=== PATIENT | female | born 1975 | race Two or more races ===

== ENCOUNTER 2018-03-14 15:43 | Emergency (ER) | payer MEDICAID, OTHER ==
[~2018-03-14] VITALS: Ht 162.6 cm; Wt 72.6 kg
[~2018-03-14 15:43] MED LIST: LEVO500T2 PO
[2018-03-14] MEDS ORDERED: PIPERACILLIN SODIUM/TAZOBACTAM 3.375 G in IV DEXTROSE 5% 50 ML IV ONE (16:45)
[2018-03-14] MEDS ORDERED: CLINDAMYCIN PHOSPHATE IV 600 MG in IV DEXTROSE 5% 100 ML IV ONE (16:45)
[2018-03-14] MEDS ORDERED: VANCOMYCIN IV 1,000 MG in IV DEXTROSE 5% 250 ML IV ONE (16:45)
[2018-03-14] MEDS ORDERED: FENTANYL CITRATE 100 MCG/2 ML AMPUL IV ONE (17:00)
[2018-03-14] MEDS ORDERED: diphenhydrAMINE 50 MG/1 ML VIAL IV ONE (17:00)
[2018-03-14] MEDS ORDERED: VANCOMYCIN IV 200 ML ONE (17:07)
[2018-03-14] MEDS ORDERED: CLINDAMYCIN PHOSPHATE 600 MG/4 ML VIAL ONE (17:07)
[2018-03-14] MEDS ORDERED: PIPERACILLIN/TAZOBACTAM/D5W 50 ML IV ONE (17:08)
[2018-03-14 17:10] LABS: BASOPHILS # (AUTO) 0.1 K/uL (0.0-8.0); BASOPHILS % (AUTO) 0.6 % (0.0-2.0); EOSINOPHILS # (AUTO) 0.2 K/uL (0.0-0.7); EOSINOPHILS % (AUTO) 1.2 % (0.0-7.0); HEMATOCRIT 42.1 % (31.2-41.9); LYMPHOCYTES % (AUTO) 12.9 % (20.5-51.5); MEAN CORPUSCULAR HEMOGLOBIN 31.1 uug (24.7-32.8); MEAN CORPUSCULAR HGB CONC 33 g/dL (32.3-35.6); MEAN CORPUSCULAR VOLUME 93.4 fL (75.5-95.3); MONOCYTES # (AUTO) 1.3 K/uL (2.0-10.0); MONOCYTES % (AUTO) 8.6 % (0.0-11.0); NEUTROPHILS # (AUTO) 11.9 K/uL (1.8-8.9); NEUTROPHILS % (AUTO) 76.7 % (38.5-71.5); PLATELET COUNT (AUTO) 220 K/uL (179-408); RED BLOOD CELL COUNT(AUTO) 4.51 MIL/uL (3.63-4.92); WHITE BLOOD COUNT (AUTO) 15.5 K/uL (3.8-11.8)
[2018-03-14] MEDS ORDERED: diphenhydrAMINE 50 MG/1 ML VIAL ONE (17:10)
[2018-03-14] MEDS ORDERED: FENTANYL CITRATE 100 MCG/2 ML AMPUL ONE (17:11)
[2018-03-14 17:19] LABS: POTASSIUM 4.3 mmol/L (3.5-5.1)
[2018-03-14 17:25] LABS: BILIRUBIN,DIRECT 0.1 mg/dL (0.0-0.2); BILIRUBIN,TOTAL 0.3 mg/dL (0.2-1.0); TOTAL PROTEIN, SERUM 6.8 g/dL (6.4-8.2)
--- NOTE | 2018-03-14 17:57 | NUR ---
pt talking to md regarding the admission. pt refuses to be admitted at this time. requesting px and being d/sigrid.
--- NOTE | 2018-03-14 19:44 | NUR ---
IV removed. Catheter intact and site benign. Pressure and 4x4 gauze applied to site. No bleeding noted.
[2018-03-14 19:46] VITALS: BP 135/88
--- NOTE | 2018-03-14 19:58 | NUR ---
Patient discharged to home in stable conditon. Written and verbal after care instructions given. Patient verbalizes understanding of instructions. Walked out of ER with no distress noted
== END 2018-03-14 19:59 | disposition home or self-care (01) ==
LOC: ER 15:45
DX: L03.113 Cellulitis of right upper limb (principal); F17.200 Nicotine dependence, unspecified, uncomplicated; Z79.2 Long term (current) use of antibiotics
CPT/HCPCS: 36415; 70030-TC; 71045; 73080; 83605; 84703; 85025; 85730; 87040; 93005; A4663; J1200; J2543; J3010; J3370; J3490; J7050

== ENCOUNTER 2018-03-18 13:34 | Emergency (ER) | payer OTHER ==
[~2018-03-18] VITALS: Ht 162.6 cm; Wt 72.6 kg
--- NOTE | 2018-03-18 13:44 | NUR ---
DR LINCOLN AT THE BEDSIDE FOR MSE.
[2018-03-18 13:55] VITALS: BP 113/81
--- NOTE | 2018-03-18 13:57 | NUR ---
Patient given written and verbal discharge instructions. Patient verbalizes understanding of instructions. Patient is ambulatory with steady gait. Refuses offer of nursing home placement. Patient given list of available shelters in surrounding area.
== END 2018-03-18 14:00 | disposition home or self-care (01) ==
LOC: ER 13:34
DX: L03.113 Cellulitis of right upper limb (principal); F17.200 Nicotine dependence, unspecified, uncomplicated; F12.10 Cannabis abuse, uncomplicated; Z79.2 Long term (current) use of antibiotics; Z59.0 Homelessness
CPT/HCPCS: A4663

== ENCOUNTER 2018-05-21 01:54 | Inpatient (IN) | payer OTHER ==
[~2018-05-21] VITALS: Ht 165.1 cm; Wt 72.7 kg
--- NOTE | 2018-05-21 02:30 | NUR ---
Patient walked into ER c/o dysuria/foul smelling urine for about 4 days. Also c/o abscess x2 site on right forearm x1 week due to IV drug use. Patient denies fever,N/V,CP and SOB at this time.
[2018-05-21 02:34] LABS: *BILIRUBIN,URIN NEGATIVE (NEGATIVE); *BLOOD, URINE NEGATIVE (NEGATIVE); *CLARITY,URINE SLIGHTLY CLOUDY (CLEAR); *COLOR,URINE YELLOW (YELLOW); *KETONES,URINE NEGATIVE (NEGATIVE); *PROTEIN,URINE NEGATIVE (NEGATIVE); LEUKOCYTE ESTERASE ,URINE TRACE (NEGATIVE); NITRITE, URINE POSITIVE (NEGATIVE); PH,URINE 6.5 (5.0-8.0); UGLUCOSE NEGATIVE (NEGATIVE)
[2018-05-21] MEDS ORDERED: PIPERACILLIN SODIUM/TAZOBACTAM 3.375 G in IV DEXTROSE 5% 50 ML IV ONE (02:40)
[2018-05-21] MEDS ORDERED: VANCOMYCIN IV 1,000 MG in IV DEXTROSE 5% 250 ML IV ONE (02:45)
[2018-05-21] MEDS ORDERED: IV NS 1000 ML 1,000 ML IV ONE (02:45)
[2018-05-21] MEDS ORDERED: VANCOMYCIN IV 200 ML ONE (02:55)
[2018-05-21 02:56] LABS: BACTERIA,URINE MANY /HPF (NONE SEEN); RBC,URINE 0-3 /HPF (0-3); RENAL EPITHELIAL CELLS,URINE MODERATE /LPF (NONE SEEN); SQUAMOUS EPITHELIAL CELL,UR MODERATE /HPF (NONE SEEN)
[2018-05-21] MEDS ORDERED: PIPERACILLIN/TAZOBACTAM/D5W 50 ML IV ONE (02:56)
[2018-05-21 03:20] LABS: BASOPHILS # (AUTO) 0.1 K/uL (0.0-8.0); BASOPHILS % (AUTO) 0.6 % (0.0-2.0); EOSINOPHILS # (AUTO) 0.2 K/uL (0.0-0.7); EOSINOPHILS % (AUTO) 2.1 % (0.0-7.0); HEMATOCRIT 44.3 % (31.2-41.9); HEMOGLOBIN 15.3 g/dL (10.9-14.3); LYMPHOCYTES % (AUTO) 21.6 % (20.5-51.5); MEAN CORPUSCULAR HEMOGLOBIN 32.5 uug (24.7-32.8); MEAN CORPUSCULAR HGB CONC 35 g/dL (32.3-35.6); MEAN CORPUSCULAR VOLUME 94.1 fL (75.5-95.3); MONOCYTES # (AUTO) 0.7 K/uL (2.0-10.0); NEUTROPHILS # (AUTO) 6.3 K/uL (1.8-8.9); NEUTROPHILS % (AUTO) 67.7 % (38.5-71.5); PLATELET COUNT (AUTO) 264 K/uL (179-408); RED BLOOD CELL COUNT(AUTO) 4.71 MIL/uL (3.63-4.92); WHITE BLOOD COUNT (AUTO) 9.3 K/uL (3.8-11.8)
[2018-05-21 03:40] LABS: CREATININE 0.9 mg/dL (0.6-1.3); POTASSIUM 3.9 mmol/L (3.5-5.1)
[2018-05-21 03:47] LABS: BILIRUBIN,TOTAL 0.2 mg/dL (0.2-1.0); TOTAL PROTEIN, SERUM 6.9 g/dL (6.4-8.2)
--- NOTE | 2018-05-21 03:55 | NUR ---
Patricio Santana MD. Waiting for Dr Peña
[2018-05-21 04:00] VITALS: BP 117/85
--- NOTE | 2018-05-21 04:18 | NUR ---
Dr Rosas speaking with Dr Peña
--- NOTE | 2018-05-21 04:30 | NUR ---
ADMITTED A 42 YEARS OLD FEMALE WITH DIAGNOSIS OF CELLULITIS. PATIENT AOX4. IN NO ACUTE DISTRESS. COMPLAINED OF ON AND OFF ABDOMINAL PAIN, THAT SEEMS LIKE NAUSEA PAIN. STILL AWAITING FOR ADMISSION ORDERS. IV SITE ON RIGHT HAND INTACT AND PATENT. IV VANCO FROM ER INFUSING AT THIS TIME. ROUTINE ADMISSION CARE DONE. PLAN OF CARE INITIATED. SAFETY MEASURE INITIATED AND CALL LOCO WITHIN REACH.
--- NOTE | 2018-05-21 04:33 | NUR ---
transfered to 2nd floor med surg via wheelchair
[2018-05-21 04:51] LABS: *URINE HCG, QUAL NEGATIVE (NEGATIVE)
[2018-05-21] MEDS ORDERED: MAGNESIUM HYDROXIDE 30 ML LIQUID UDC PO PRN (05:30)
[2018-05-21] MEDS ORDERED: ACETAMINOPHEN 325 MG TABLET PO PRN (05:30)
[2018-05-21] MEDS ORDERED: HYDROCODONE/APAP 5-325MG TABLET PO PRN (05:30)
[2018-05-21] MEDS ORDERED: Z GUARD REMEDY PASTE 57 GM TUBE TOP PRN (05:30)
[2018-05-21] MEDS ORDERED: ZOLPIDEM 5 MG TABLET PO PRN (05:30)
[2018-05-21] MEDS: IV NS 1000 ML 1,000 ML IV PRN (05:42)
[2018-05-21] MEDS: ONDANSETRON 4 MG/2 ML VIAL IV PRN ×2 (05:42→20:09)
--- NOTE | 2018-05-21 06:43 | NUR ---
PATIENT SLEEPING AT THIS TIME. IN NO ACUTE DISTRESS. NORCO EFFECTIVE FOR ABDOMINAL PAIN. NO FURTHER NAUSEA REPORTED. IV SITE ON RIGHT FA REMAINS INTACT AND PATENT. IVF INFUSING. NO ADVERSE EFFECT NOTED FROM IV ABX. SAFETY MEASURE MAINTAINED AND CALL LOCO WITHIN REACH.
[2018-05-21] MEDS: PIPERACILLIN SODIUM/TAZOBACTAM 4.5 G in IV DEXTROSE 5% 50 ML IV SCH ×2 (11:05→19:35)
[2018-05-21 11:44] VITALS: BP 111/73
--- NOTE | 2018-05-21 13:21 | NUR ---
Clinical pharmacy note-Vancomycin dosing per pharmacy Subjective: To start Vancomycin dosing on this 42 yo female patient for cellulitis of right forearm Objective: BUN 14 scr 0.9 WBC 9.3 Temp 97.3 Ht 165cm Wt 72.6kg Assessment/Plan: Patient received vanco 1gm IVPB x1 dose in ED today at 0330. Will start vanco 1250mg IVPB q15 hr for predicted vanco trough level of 16.4 mcg/ml at steady state. 1st dose due today at 1700. Plan to order vanco trough level before 4th dose (not yet ordered). Will monitor renal function & adjust the dose if needed. Will follow daily.
[2018-05-21] MEDS: VANCOMYCIN IV 1,250 MG in IV DEXTROSE 5% 500 ML IV SCH (16:20)
[2018-05-21 16:56] VITALS: BP 101/65
--- NOTE | 2018-05-21 19:20 | NUR ---
PATIENT AOX4. IN NO ACUTE DISTRESS. DENIES ANY PAIN OR SOB. VS WNL. IV SITE ON RIGHT HAND INTACT AND PATENT. IVF INFUSING. NEEDS ASSESSED AND ATTENDED TO. SAFETY MEASURE INITIATED AND CALL LOCO WITHIN REACH.
[2018-05-21 19:28] VITALS: BP 112/71
[2018-05-21] MEDS: LACTOBACILLUS RHAMNOSUS GG 1 EACH CAPSULE PO SCH (20:05)
--- NOTE | 2018-05-21 23:23 | NUR ---
URINE SPECIMEN FOR CULTURE SENT TO LAB.
[2018-05-22] MEDS: IV NS 1000 ML 1,000 ML IV PRN (00:04)
[2018-05-22] MEDS: PIPERACILLIN SODIUM/TAZOBACTAM 4.5 G in IV DEXTROSE 5% 50 ML IV SCH ×2 (02:04→10:22)
[2018-05-22 03:47] VITALS: BP 101/62
--- NOTE | 2018-05-22 06:13 | NUR ---
PATIENT REMAINS AOX4. SLEPT WELL LAST NIGHT. IN NO ACUTE DISTRESS. DENIES ANY PAIN OR SOB. VS WNL. ABSCESS ON RIGHT FA REMAINS VISIBLE. IV SITE ON RIGHT HAND INTACT AND PATENT. IVF INFUSING. NO ADVERSE REACTION NOTED FROM IV ABX. NEEDS ASSESSED AND ATTENDED TO. SAFETY MEASURE MAINTAINED AND CALL LOCO WITHIN REACH.
[2018-05-22 07:17] LABS: BASOPHILS % (AUTO) 0.6 % (0.0-2.0); EOSINOPHILS # (AUTO) 0.3 K/uL (0.0-0.7); EOSINOPHILS % (AUTO) 3.6 % (0.0-7.0); HEMATOCRIT 42.7 % (31.2-41.9); HEMOGLOBIN 14.4 g/dL (10.9-14.3); LYMPHOCYTES # (AUTO) 1.8 K/uL (20.0-40.0); LYMPHOCYTES % (AUTO) 23.5 % (20.5-51.5); MEAN CORPUSCULAR HEMOGLOBIN 32.1 uug (24.7-32.8); MEAN CORPUSCULAR HGB CONC 34 g/dL (32.3-35.6); MEAN CORPUSCULAR VOLUME 94.8 fL (75.5-95.3); MONOCYTES # (AUTO) 0.7 K/uL (2.0-10.0); MONOCYTES % (AUTO) 9.1 % (0.0-11.0); NEUTROPHILS # (AUTO) 4.8 K/uL (1.8-8.9); NEUTROPHILS % (AUTO) 63.2 % (38.5-71.5); PLATELET COUNT (AUTO) 250 K/uL (179-408); WHITE BLOOD COUNT (AUTO) 7.6 K/uL (3.8-11.8)
[2018-05-22 07:24] LABS: CREATININE 0.7 mg/dL (0.6-1.3); MAGNESIUM 2.1 mg/dL (1.8-2.4); PHOSPHOROUS 3.7 mg/dL (2.5-4.9); POTASSIUM 4.5 mmol/L (3.5-5.1)
[2018-05-22] MEDS: VANCOMYCIN IV 1,250 MG in IV DEXTROSE 5% 500 ML IV SCH (07:56)
[2018-05-22] MEDS: LACTOBACILLUS RHAMNOSUS GG 1 EACH CAPSULE PO SCH (08:05)
--- NOTE | 2018-05-22 09:17 | NUR ---
Clinical pharmacy note-Vancomycin dosing per pharmacy Subjective: To continue Vancomycin dosing on this 42 yo female patient for cellulitis of right forearm Objective: BUN 8 scr 0.7 WBC 7.6 Temp 97.9 Ht 165cm Wt 72.6kg Assessment/Plan: Due to decrease in srcr, will change dose of vanco to 1250mg IVPB q13 hr for predicted vanco trough level of 15 mcg/ml at steady state. 1st gant due today at 0800. Plan to order vanco trough level before 4th dose (not yet ordered). Will monitor renal function & adjust the dose if needed. Will follow daily.
[2018-05-22] MEDS ORDERED: SULF1TAB48 PO (10:57)
[2018-05-22 11:10] VITALS: BP 108/69
--- NOTE | 2018-05-22 12:33 | NUR ---
d/c orders received noted and carried out.d/c instruction and education given to the pt ashley/kortney miguel per md orders. pt left the facility via walking from the hospital in stable condition.
[2018-05-22] MEDS ORDERED: VANCOMYCIN IV 1,250 MG in IV DEXTROSE 5% 500 ML IV SCH (21:00)
== END 2018-05-22 12:46 | disposition home or self-care (01) | DRG 383 ==
LOC: ER 01:56 → MED 04:02
PROVIDERS: ADMIT Internal Medicine; ATTEND Internal Medicine
DX: L03.113 Cellulitis of right upper limb (principal); F11.10 Opioid abuse, uncomplicated; N39.0 Urinary tract infection, site not specified; Z59.0 Homelessness; L02.413 Cutaneous abscess of right upper limb; F15.10 Other stimulant abuse, uncomplicated
CPT/HCPCS: 36415; 70030-TC; 71045; 73090; 83735; 84100; 84703; 85025; 85610; 85651; 87040; 87086; 93005; A4663; J2405; J2543; J3370; J7030; J7060

== ENCOUNTER 2018-12-07 23:11 | Emergency (ER) | payer OTHER ==
[~2018-12-07] VITALS: Ht 162.6 cm; Wt 72.6 kg
[~2018-12-07 23:11] MED LIST changes: -LEVO500T2 PO; +SULF1TAB48 PO
[2018-12-07] MEDS ORDERED: ONDANSETRON ODT 4 MG TAB.RAPDIS SL ONE (23:30)
[2018-12-07] MEDS ORDERED: VANCOMYCIN IV 1,000 MG in IV DEXTROSE 5% 250 ML IV ONE (23:30)
[2018-12-07] MEDS ORDERED: OXYCODONE/APAP 5-325 MG TABLET PO ONE (23:30)
[2018-12-07] MEDS ORDERED: SULFAMETH/TRIMETH 800/160 MG TABLET PO ONE (23:30)
[2018-12-07] MEDS ORDERED: ONDANSETRON ODT 4 MG TAB.RAPDIS ONE (23:34)
[2018-12-07] MEDS ORDERED: SULFAMETH/TRIMETH 800/160 MG TABLET ONE (23:34)
[2018-12-07] MEDS ORDERED: OXYCODONE/APAP 5-325 MG TABLET ONE (23:34)
[2018-12-07] MEDS ORDERED: VANCOMYCIN IV 200 ML ONE (23:34)
[2018-12-07 23:50] LABS: BASOPHILS # (AUTO) 0.1 K/uL (0.0-8.0); BASOPHILS % (AUTO) 0.6 % (0.0-2.0); EOSINOPHILS # (AUTO) 0.4 K/uL (0.0-0.7); EOSINOPHILS % (AUTO) 2.9 % (0.0-7.0); HEMATOCRIT 41.9 % (31.2-41.9); LYMPHOCYTES % (AUTO) 15.2 % (20.5-51.5); MEAN CORPUSCULAR HEMOGLOBIN 30.5 uug (24.7-32.8); MEAN CORPUSCULAR HGB CONC 34 g/dL (32.3-35.6); MEAN CORPUSCULAR VOLUME 91.1 fL (75.5-95.3); MONOCYTES # (AUTO) 1.3 K/uL (2.0-10.0); MONOCYTES % (AUTO) 10.2 % (0.0-11.0); NEUTROPHILS # (AUTO) 9.2 K/uL (1.8-8.9); NEUTROPHILS % (AUTO) 71.1 % (38.5-71.5); PLATELET COUNT (AUTO) 208 K/uL (179-408)
[2018-12-08 00:07] LABS: *BILIRUBIN,URIN NEGATIVE (NEGATIVE); *BLOOD, URINE NEGATIVE (NEGATIVE); *CLARITY,URINE CLEAR (CLEAR); *COLOR,URINE YELLOW (YELLOW); *KETONES,URINE NEGATIVE (NEGATIVE); LEUKOCYTE ESTERASE ,URINE NEGATIVE (NEGATIVE); NITRITE, URINE NEGATIVE (NEGATIVE); UGLUCOSE NEGATIVE (NEGATIVE)
--- NOTE | 2018-12-08 00:15 | NUR ---
Patient sleeping wit no distress noted
[2018-12-08 00:17] LABS: BACTERIA,URINE NONE SEEN /HPF (NONE SEEN); SQUAMOUS EPITHELIAL CELL,UR MODERATE /HPF (NONE SEEN)
--- NOTE | 2018-12-08 00:37 | NUR ---
IV removed. Catheter intact and site benign. Pressure and 4x4 gauze applied to site. No bleeding noted.
[2018-12-08 00:38] VITALS: BP 120/75
--- NOTE | 2018-12-08 00:39 | NUR ---
Patient given written and verbal discharge instructions. Patient verbalizes understanding of instructions. Patient is ambulatory with steady gait. Refuses offer of custodial placement. Patient given list of available shelters in surrounding area.
== END 2018-12-08 00:39 | disposition home or self-care (01) ==
LOC: ER 23:13
DX: L03.114 Cellulitis of left upper limb (principal); F15.10 Other stimulant abuse, uncomplicated; F12.10 Cannabis abuse, uncomplicated; F17.290 Nicotine dependence, other tobacco product, uncomplicated; Z71.6 Tobacco abuse counseling; Z59.0 Homelessness; Z79.899 Other long term (current) drug therapy
CPT/HCPCS: 36415; 81001; 85025; 87040 ×2; 96365; 99284; 99406; J3370; A4663; Q0162

== ENCOUNTER 2018-12-09 14:43 | Emergency (ER) | payer OTHER ==
[~2018-12-09] VITALS: Ht 162.6 cm; Wt 72.6 kg
--- NOTE | 2018-12-09 15:27 | NUR ---
PT IS IN ROOM #2A. DR AVILEZ EVALUATED THE PT.
--- NOTE | 2018-12-09 15:49 | NUR ---
DIRECTOR OF SUSTAINABILITY PROGRAMS WALKER EVALUATED THE PT. PT REFUSED TO GO TO INTERMEDIATE . PT STATED SHE HAS HER OWN ARRANGEMENTS FOR HOUSING. PT WAS PROVIDED WITH ADDITIONAL CLOTH AND FOOD. PT WAS D/C'd FROM ER. D/C INSTRUCTIONS GIVEN TO THE PT.
[2018-12-09 15:53] VITALS: BP 136/87
== END 2018-12-09 15:54 | disposition home or self-care (01) ==
LOC: ER 14:53
DX: L03.114 Cellulitis of left upper limb (principal); F17.200 Nicotine dependence, unspecified, uncomplicated; F12.10 Cannabis abuse, uncomplicated; F15.10 Other stimulant abuse, uncomplicated; Z79.899 Other long term (current) drug therapy; Z59.0 Homelessness
CPT/HCPCS: A4663

== ENCOUNTER 2019-11-09 11:27 | Emergency (ER) | payer OTHER ==
[~2019-11-09] VITALS: Ht 165.1 cm; Wt 81.6 kg
--- NOTE | 2019-11-09 11:41 | NUR ---
Dr Powers at the bedside for MSE.
[2019-11-09] MEDS ORDERED: LIDOCAINE HCL 2% 20 ML VIAL TP ONE (12:00)
[2019-11-09] MEDS ORDERED: HYDROCODONE/APAP 10-325 MG TABLET PO ONE (12:00)
--- NOTE | 2019-11-09 12:03 | NUR ---
RT FA abscess I&D by Dr Powers, pt tolorated well.
[2019-11-09] MEDS ORDERED: HYDROCODONE/APAP 10-325 MG TABLET ONE (12:04)
[2019-11-09] MEDS ORDERED: IBUPROFEN 600 MG TABLET ONE (12:13)
[2019-11-09] MEDS ORDERED: IBUPROFEN 600 MG TABLET PO ONE (12:15)
[2019-11-09 12:26] VITALS: BP 127/80
--- NOTE | 2019-11-09 12:27 | NUR ---
Patient given written and verbal discharge instructions. Patient verbalizes understanding of instructions. Patient is ambulatory with steady gait. Refuses offer of care home placement. Patient given list of available shelters in surrounding area. Pt provided food/fluids.
== END 2019-11-09 12:37 | disposition home or self-care (01) ==
LOC: ER 11:27
DX: L02.413 Cutaneous abscess of right upper limb (principal); J44.9 Chronic obstructive pulmonary disease, unspecified; F17.200 Nicotine dependence, unspecified, uncomplicated; Z59.0 Homelessness; Z79.899 Other long term (current) drug therapy
CPT/HCPCS: A4663

== ENCOUNTER 2020-07-11 16:49 | Emergency (ER) | payer OTHER ==
[~2020-07-11] VITALS: Ht 165.1 cm; Wt 81.6 kg
== END 2020-07-11 18:33 | disposition left against medical advice (07) ==
LOC: ER 16:51
DX: Z75.3 Unavailability and inaccessibility of health-care facilities (principal)

== ENCOUNTER 2020-11-15 02:44 | Emergency (ER) | payer OTHER ==
[~2020-11-15] VITALS: Ht 162.6 cm; Wt 99.8 kg
[2020-11-15 03:18] LABS: *BILIRUBIN,URIN 3+ (NEGATIVE); *BLOOD, URINE NEGATIVE (NEGATIVE); *CLARITY,URINE CLEAR (CLEAR); *COLOR,URINE AMBER (YELLOW); *KETONES,URINE TRACE (NEGATIVE); LEUKOCYTE ESTERASE ,URINE NEGATIVE (NEGATIVE); NITRITE, URINE NEGATIVE (NEGATIVE); UGLUCOSE NEGATIVE (NEGATIVE)
--- NOTE | 2020-11-15 03:20 | NUR ---
Patient arrived at the ER with c/o dysuria with foul smelling urine x2 days with lower back and right flank pain.
[2020-11-15] MEDS ORDERED: PHENAZOPYRIDINE HCL 100 MG TABLET ONE (03:26)
[2020-11-15 03:28] LABS: BACTERIA,URINE MODERATE /HPF (NONE SEEN); CALCIUM OXALATE CRYSTALS,UR FEW /HPF (NONE SEEN); RBC,URINE 0-3 /HPF (0-3); SQUAMOUS EPITHELIAL CELL,UR MODERATE /HPF (NONE SEEN)
[2020-11-15] MEDS ORDERED: PHENAZOPYRIDINE HCL 100 MG TABLET PO ONE (03:30)
--- NOTE | 2020-11-15 03:40 | NUR ---
Dr. Salter on bedside for MSE.
[2020-11-15 04:16] LABS: BASOPHILS % (AUTO) 0.2 % (0.0-2.0); EOSINOPHILS # (AUTO) 0.6 K/uL (0.0-0.7); EOSINOPHILS % (AUTO) 3.8 % (0.0-7.0); HEMATOCRIT 50.2 % (31.2-41.9); HEMOGLOBIN 16.7 g/dL (10.9-14.3); LYMPHOCYTES # (AUTO) 0.3 K/uL (20.0-40.0); LYMPHOCYTES % (AUTO) 2.1 % (20.5-51.5); MEAN CORPUSCULAR HEMOGLOBIN 31.2 uug (24.7-32.8); MEAN CORPUSCULAR HGB CONC 33 g/dL (32.3-35.6); MEAN CORPUSCULAR VOLUME 93.6 fL (75.5-95.3); MONOCYTES # (AUTO) 0.6 K/uL (2.0-10.0); MONOCYTES % (AUTO) 3.9 % (0.0-11.0); NEUTROPHILS # (AUTO) 14.7 K/uL (1.8-8.9); PLATELET COUNT (AUTO) 207 K/uL (179-408); RED BLOOD CELL COUNT(AUTO) 5.37 MIL/uL (3.63-4.92); WHITE BLOOD COUNT (AUTO) 16.4 K/uL (3.8-11.8)
[2020-11-15 04:24] LABS: POTASSIUM 3.7 mmol/L (3.5-5.1)
[2020-11-15 04:29] LABS: BILIRUBIN,TOTAL 6.2 mg/dL (0.2-1.0); TOTAL PROTEIN, SERUM 7.4 g/dL (6.4-8.2)
--- NOTE | 2020-11-15 04:43 | NUR ---
Dr. Salter on bedside.
[2020-11-15 04:47] LABS: *URINE HCG, QUAL NEGATIVE (NEGATIVE)
[2020-11-15] MEDS ORDERED: CEFTRIAXONE 1 G in IV DEXTROSE 5% 50 ML IV ONE (07:00)
--- NOTE | 2020-11-15 07:07 | NUR ---
Samira from patient insurance caled and gave info regarding patient current condition. Dr. Hdz to call call center dispatcher Dr. Montano from [facility] for report. Dr. Hdz made aware.
--- NOTE | 2020-11-15 07:20 | NUR ---
Received report from Ashwini KAT, patient pending IV insertion and IV ATB.
--- NOTE | 2020-11-15 07:22 | NUR ---
Report given to day shift [facility].
[2020-11-15] MEDS ORDERED: CEFTRIAXONE /D5W 50ML IVPB **ER PYXIS IV ONE (07:23)
--- NOTE | 2020-11-15 07:45 | NUR ---
First contact with pt at 07, at this time assessment has been completed and patient was inserted a new IV line on R wrist 22 G and IV ATB running, with no adverse effects. Pt is AO x 4, tachycardic at low 100's, sinus rhythm, and slightly tachypneic at 22. Denies SOB or dyspnea. Verbalizes feeling overall sick and weak, but no discomfort/pain at this time.
--- NOTE | 2020-11-15 08:45 | NUR ---
REPORT TO [facility] 2268/KP RN Report given to Kp RN of [facility], 2268. Pending admitting MD, hospitalist button facing machine operator. RN knows that pending ambulance information.
--- NOTE | 2020-11-15 09:23 | NUR ---
[place] 10:15 AM CHRISTIAN SCIENCE PRACTITIONER S/w Samira who provided ambulance information above. Updated Mcihael RN about pick and shovel worker time. Faxed face sheet to [facility] @ [phone] per Samira's request, with confirmation.
--- NOTE | 2020-11-15 10:32 | NUR ---
PT PICKED UP BY 2 BUTTONHOLE MACHINE OPERATOR FROM [facility] TO [facility] VS Stable as recorded. Pt ambulated with steady gait to the [facility]. Left in stable condition, no acute distress.
[2020-11-16 07:06] LABS: HEPATITIS A AB, IgM Negative (Negative); HEPATITIS A AB, TOTAL Positive (Negative); HEPATITIS B SURFACE AB Non Reactive (.); HEPATITIS B SURFACE AG Negative (Negative)
== END 2020-11-15 10:35 | disposition short-term general hospital (02) ==
LOC: ER 03:04
DX: K72.00 Acute and subacute hepatic failure without coma (principal); D72.829 Elevated white blood cell count, unspecified; Z59.0 Homelessness; J44.9 Chronic obstructive pulmonary disease, unspecified; F17.200 Nicotine dependence, unspecified, uncomplicated; R41.3 Other amnesia; Z86.16 Personal history of COVID-19; Z82.49 Family history of ischemic heart disease and other diseases of the circulatory system; N39.0 Urinary tract infection, site not specified
CPT/HCPCS: 36415; 71045; 76705; 80053; 81001; 84703; 85025; 85610; 86704; 86705; 86706; 86708; 86709; 86803; 87086; 87340; 87426; 96365; 99285; J0696; 87077; A4663